=== PATIENT | female | born 1980 | race Caucasian/White ===

== ENCOUNTER 2025-02-28 00:04 | Emergency (ER) | payer BC ==
[2025-02-28 00:16] VITALS: TEMP 97.8
[2025-02-28] MEDS: Zofran 4 MG/2 ML VIAL IV ONE (00:19)
[2025-02-28] MEDS ORDERED: Zofran 4 MG/2 ML VIAL ONE (00:19)
[2025-02-28] MEDS ORDERED: Lactated Ringers 1,000 ML IV ONE (00:19)
[2025-02-28] MEDS: Lactated Ringers 1,000 ML IV ONE (00:20)
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
[2025-02-28] MEDS ORDERED: DUONEB 0.5-3 MG/3 ml Neb IH ONE (00:32)
[2025-02-28] MEDS: DUONEB 0.5-3 MG/3 ml Neb IH ONE (00:34)
[2025-02-28 00:53] LABS: Hematocrit 37.3 % (34.1-44.9); Hemoglobin 12.4 g/dL (11.2-15.7); Mean Corpuscular Hemoglobin 29.2 pg (25.6-32.2); Mean Corpuscular Hgb Concent. 33.2 g/dL (32.2-35.5); Platelet Count 331 x10^3/uL (182-369); Red Blood Count 4.24 x10^6/uL (3.93-5.22); White Blood Count 10.4 x10^3/uL (3.98-10.04)
[2025-02-28 01:08] LABS: Calcium 8.8 mg/dL (8.4-10.2); Carbon Dioxide 24 mmol/L (22-30); Creatinine 1 0.65 mg/dL (0.52-1.04); EST GLOMERULAR FILTRATION RATE 109.9 ML/MIN; ETHYL ALCOHOL 229 mg/dL (0-10); Glucose 97 mg/dL (74-106); Potassium 3.7 mmol/L (3.5-5.1); SGOT/AST 700 U/L (14-36); SGPT/ALT 288 U/L (0-35); Total Protein 7.4 g/dL (6.3-8.2)
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
[2025-02-28] MEDS ORDERED: MORPHINE SULFATE 2 MG INJ ONE ×2 (01:51→02:53)
[2025-02-28] MEDS: MORPHINE SULFATE 2 MG INJ IV ONE ×2 (01:56→02:55)
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
[2025-02-28 02:19] LABS: Glucose, Urine Negative (Negative); Protein,Urine Dip 30 (Negative); RBC 51-100 /HPF (0-5)
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
[2025-02-28 02:30] LABS: Amphetamine,Urine NEGATIVE (NEGATIVE); Barbiturate,Urine NEGATIVE (NEGATIVE); Benzodiazepine,Urine NEGATIVE (NEGATIVE); Cocaine,Urine NEGATIVE (NEGATIVE); Methadone,Urine NEGATIVE (NEGATIVE); Opiate,Urine NEGATIVE (NEGATIVE); PCP,Urine NEGATIVE (NEGATIVE); THC,Urine NEGATIVE (NEGATIVE)
[2025-02-28 02:52] LABS: Total Cells Counted 100
[2025-02-28 03:41] VITALS: BP 119/72; PULSE 96; RESP 17; O2SAT 97
== END 2025-02-28 03:45 | disposition short-term general hospital (02) ==
LOC: ED 00:04
DX: Z04.1 Encounter for examination and observation following transport accident (principal); S32.039A Unspecified fracture of third lumbar vertebra, initial encounter for closed fracture; V99.XXXA Unspecified transport accident, initial encounter; S20.219A Contusion of unspecified front wall of thorax, initial encounter; R07.89 Other chest pain; R77.8 Other specified abnormalities of plasma proteins; F10.129 Alcohol abuse with intoxication, unspecified; Y90.7 Blood alcohol level of 200-239 mg/100 ml; Z79.899 Other long term (current) drug therapy